=== PATIENT | female | born 1940 | race African-American/Black ===

== ENCOUNTER 2018-02-19 20:59 | Inpatient (IN) ==
[2018-02-19 21:54] LABS: Basophils % 0.4 % (0.0-0.8); Eosinophils # 0.2 10*3/uL (0.0-0.87); Eosinophils % 2.2 % (0.00-10.9); Hematocrit 27.9 VOL% (35.7-47.0); Hemoglobin 8.6 GM/DL (12.0-16.0); Immature Granulocytes % 0.4 %; Immature Granulocytes Absolute 0.03 #; Lymphocytes # 1.5 10*3/uL (1.4-4.0); Lymphocytes % 20.8 % (21.3-54.2); Mean Corpuscular HGB Conc 30.8 GM/DL (32-36); Mean Corpuscular Hemoglobin 29 PG (27-34); Mean Corpuscular Volume 92.7 FL (87-102); Mean Platelet Volume 12.2 FL (9.6-12.0); Monocytes # 0.8 10*3/uL (0.11-0.8); Monocytes % 10.7 % (1.7-12.7); Neutrophils # 4.7 10*3/uL (1.4-7.4); Neutrophils % 65.5 % (38.7-73.9); Platelet Count 108 T/CUMM (130-400); Red Blood Count 3.01 MC/CUMM (3.8-5.5); Red Cell Distribution Width 13.2 % (9.3-17.3); White Blood Count 7.2 T/CUMM (4-12)
[2018-02-19 22:04] LABS: Alanine Aminotransferase 11 U/L (13-56); Albumin 3.2 G/DL (3.4-5.0); Alkaline Phosphatase 90 U/L (45-117); Aspartate Amino Transferase 10 U/L (0-37); Bilirubin,Total < 0.39 MG/DL (0.2-1.0); Blood Urea Nitrogen 30 MG/DL (7-18); Calcium 9.8 MG/DL (8.5-10.1); Glucose 72 MG/DL (74-106); Osmolality,Calculated 283.4 MOS/KG (273-304); Potassium 3.7 MMOL/L (3.5-5.1); Sodium 140 MMOL/L (136-145); Total Protein 7.2 G/DL (6.4-8.3)
[2018-02-19 22:24] LABS: INR 1.2; PT Patient Result 12.8 SECS
[2018-02-20 01:48] LABS: Basophils # 0.1 10*3/uL (0.0-0.2); Basophils % 0.5 % (0.0-0.8); Eosinophils # 0.2 10*3/uL (0.0-0.87); Eosinophils % 1.7 % (0.00-10.9); Hematocrit 25.2 VOL% (35.7-47.0); Immature Granulocytes % 1.4 %; Immature Granulocytes Absolute 0.15 #; Lymphocytes # 1.7 10*3/uL (1.4-4.0); Lymphocytes % 15.9 % (21.3-54.2); Mean Corpuscular HGB Conc 31.7 GM/DL (32-36); Mean Corpuscular Hemoglobin 29 PG (27-34); Mean Corpuscular Volume 90.6 FL (87-102); Mean Platelet Volume 11.9 FL (9.6-12.0); Monocytes # 0.9 10*3/uL (0.11-0.8); Monocytes % 8.2 % (1.7-12.7); Neutrophils # 7.7 10*3/uL (1.4-7.4); Neutrophils % 72.3 % (38.7-73.9); Platelet Count 115 T/CUMM (130-400); Red Blood Count 2.78 MC/CUMM (3.8-5.5); Red Cell Distribution Width 13.3 % (9.3-17.3); White Blood Count 10.7 T/CUMM (4-12)
[2018-02-20 06:00] LABS: Alanine Aminotransferase < 9 U/L (13-56); Albumin 2.8 G/DL (3.4-5.0); Alkaline Phosphatase 78 U/L (45-117); Aspartate Amino Transferase 8 U/L (0-37); Blood Urea Nitrogen 28 MG/DL (7-18); Calcium 9.5 MG/DL (8.5-10.1); Cholesterol 132 MG/DL (50-200); Glucose 78 MG/DL (74-106); HDL Cholesterol 56 MG/DL (40-60); Osmolality,Calculated 287.1 MOS/KG (273-304); Potassium 3.5 MMOL/L (3.5-5.1); Risk Ratio 2.36; Sodium 142 MMOL/L (136-145); Total Protein 6.2 G/DL (6.4-8.3); Triglycerides 51 MG/DL (2-150); VLDL CHOLESTEROL 10.2 MG/DL
[2018-02-20 14:33] LABS: Hematocrit 28.8 VOL% (35.7-47.0); Hemoglobin 9.3 GM/DL (12.0-16.0)
[2018-02-20 21:30] LABS: Hematocrit 29.1 VOL% (35.7-47.0); Hemoglobin 9.7 GM/DL (12.0-16.0)
[2018-02-21 05:22] LABS: Basophils % 0.3 % (0.0-0.8); Eosinophils # 0.2 10*3/uL (0.0-0.87); Eosinophils % 1.5 % (0.00-10.9); Hematocrit 27.1 VOL% (35.7-47.0); Hemoglobin 9.1 GM/DL (12.0-16.0); Immature Granulocytes % 0.4 %; Immature Granulocytes Absolute 0.04 #; Lymphocytes # 1.2 10*3/uL (1.4-4.0); Lymphocytes % 12.4 % (21.3-54.2); Mean Corpuscular HGB Conc 33.6 GM/DL (32-36); Mean Corpuscular Hemoglobin 30 PG (27-34); Mean Platelet Volume 11.2 FL (9.6-12.0); Monocytes # 0.8 10*3/uL (0.11-0.8); Monocytes % 8.2 % (1.7-12.7); Neutrophils # 7.6 10*3/uL (1.4-7.4); Neutrophils % 77.2 % (38.7-73.9); Red Blood Count 3.08 MC/CUMM (3.8-5.5); Red Cell Distribution Width 13.8 % (9.3-17.3); White Blood Count 9.9 T/CUMM (4-12)
[2018-02-21 05:25] LABS: Platelet Count 87 T/CUMM (130-400)
[2018-02-21 05:50] LABS: Hypochromasia 1+; Microcytosis Slight
[2018-02-21 05:51] LABS: Platelet Estimate Decreased
[2018-02-22 06:05] LABS: Basophils % 0.2 % (0.0-0.8); Eosinophils # 0.2 10*3/uL (0.0-0.87); Eosinophils % 1.7 % (0.00-10.9); Hematocrit 24.1 VOL% (35.7-47.0); Immature Granulocytes % 0.5 %; Immature Granulocytes Absolute 0.04 #; Lymphocytes # 1.2 10*3/uL (1.4-4.0); Lymphocytes % 13.8 % (21.3-54.2); Mean Corpuscular HGB Conc 33.2 GM/DL (32-36); Mean Corpuscular Hemoglobin 29 PG (27-34); Mean Corpuscular Volume 88.3 FL (87-102); Mean Platelet Volume 12.3 FL (9.6-12.0); Monocytes # 0.7 10*3/uL (0.11-0.8); Monocytes % 7.9 % (1.7-12.7); Neutrophils # 6.5 10*3/uL (1.4-7.4); Neutrophils % 75.9 % (38.7-73.9); Platelet Count 88 T/CUMM (130-400); Red Blood Count 2.73 MC/CUMM (3.8-5.5); Red Cell Distribution Width 13.6 % (9.3-17.3); White Blood Count 8.6 T/CUMM (4-12)
[2018-02-22 06:39] LABS: Calcium 9.6 MG/DL (8.5-10.1); Osmolality,Calculated 288.1 MOS/KG (273-304); Potassium 3.5 MMOL/L (3.5-5.1)
[2018-02-22 06:49] LABS: Hypochromasia 1+; Microcytosis 1+
[2018-02-22 06:50] LABS: Ovalocytes Slight; Platelet Estimate Decreased
[2018-02-22 16:31] LABS: Hematocrit 23.2 VOL% (35.7-47.0); Hemoglobin 7.2 GM/DL (12.0-16.0)
[2018-02-23 06:14] LABS: Basophils % 0.2 % (0.0-0.8); Eosinophils # 2.5 10*3/uL (0.0-0.87); Eosinophils % 40.5 % (0.00-10.9); Hematocrit 30.7 VOL% (35.7-47.0); Immature Granulocytes % 1.8 %; Immature Granulocytes Absolute 0.11 #; Lymphocytes # 0.6 10*3/uL (1.4-4.0); Lymphocytes % 8.8 % (21.3-54.2); Mean Corpuscular HGB Conc 32.9 GM/DL (32-36); Mean Corpuscular Hemoglobin 30 PG (27-34); Mean Platelet Volume 12.1 FL (9.6-12.0); Monocytes # 0.4 10*3/uL (0.11-0.8); Monocytes % 6.1 % (1.7-12.7); Neutrophils # 2.7 10*3/uL (1.4-7.4); Neutrophils % 42.6 % (38.7-73.9); Platelet Count 73 T/CUMM (130-400); Red Cell Distribution Width 13.6 % (9.3-17.3); White Blood Count 6.3 T/CUMM (4-12)
[2018-02-23 06:19] LABS: Red Blood Count 3.41 MC/CUMM (3.8-5.5)
[2018-02-23 06:20] LABS: Hemoglobin 10.1 GM/DL (12.0-16.0)
[2018-02-23 06:35] LABS: Band Neutrophils 1 % (0-10); Eosinophils 5 % (0-10); Lymphocytes 5 % (20-55); Segmented Neutrophils 87 % (50-85); Total Cells Counted 100
[2018-02-23 06:38] LABS: Calcium 9.5 MG/DL (8.5-10.1); Osmolality,Calculated 286.3 MOS/KG (273-304); Potassium 3.2 MMOL/L (3.5-5.1)
[2018-02-23 06:43] LABS: Microcytosis 1+
[2018-02-23 06:44] LABS: Ovalocytes Slight; Platelet Estimate Decreased
[2018-02-24 10:53] LABS: Hematocrit 23.1 VOL% (35.7-47.0)
[2018-02-24 10:55] LABS: Hemoglobin 7.6 GM/DL (12.0-16.0)
[2018-02-25 05:38] LABS: Basophils % 0.2 % (0.0-0.8); Eosinophils # 0.1 10*3/uL (0.0-0.87); Eosinophils % 1.2 % (0.00-10.9); Hematocrit 28.2 VOL% (35.7-47.0); Hemoglobin 9.6 GM/DL (12.0-16.0); Immature Granulocytes % 0.6 %; Immature Granulocytes Absolute 0.07 #; Lymphocytes # 1.2 10*3/uL (1.4-4.0); Lymphocytes % 10.5 % (21.3-54.2); Mean Corpuscular Hemoglobin 28 PG (27-34); Mean Corpuscular Volume 83.4 FL (87-102); Mean Platelet Volume 12.5 FL (9.6-12.0); Monocytes % 8.1 % (1.7-12.7); Neutrophils # 9.4 10*3/uL (1.4-7.4); Neutrophils % 79.4 % (38.7-73.9); Red Blood Count 3.38 MC/CUMM (3.8-5.5); Red Cell Distribution Width 17.4 % (9.3-17.3); White Blood Count 11.8 T/CUMM (4-12)
[2018-02-25 05:40] LABS: Platelet Count 72 T/CUMM (130-400)
[2018-02-25 06:01] LABS: Hypochromasia 1+; Microcytosis 1+; Platelet Estimate Decreased
[2018-02-25 11:40] VITALS: BP 134/67
== END 2018-02-25 15:14 | disposition home or self-care (01) | DRG 378 ==
LOC: EDUNIT# → EDBD → N.ED 20:59 → N.EDINP 22:52 → N.2E 02-20 00:40
PROVIDERS: ADMIT Family Medicine; ATTEND Family Medicine

== ENCOUNTER 2018-02-26 14:54 | Inpatient (IN) ==
[2018-02-26 16:24] LABS: Basophils % 0.1 % (0.0-0.8); Eosinophils % 0.2 % (0.00-10.9); Immature Granulocytes % 0.7 %; Immature Granulocytes Absolute 0.08 #; Lymphocytes # 0.9 10*3/uL (1.4-4.0); Lymphocytes % 7.9 % (21.3-54.2); Mean Corpuscular HGB Conc 33.1 GM/DL (32-36); Mean Corpuscular Hemoglobin 29 PG (27-34); Mean Corpuscular Volume 87.1 FL (87-102); Mean Platelet Volume 11.8 FL (9.6-12.0); Monocytes # 0.8 10*3/uL (0.11-0.8); Monocytes % 7.5 % (1.7-12.7); Neutrophils # 9.2 10*3/uL (1.4-7.4); Neutrophils % 83.6 % (38.7-73.9); Platelet Count 75 T/CUMM (130-400); Red Blood Count 2.01 MC/CUMM (3.8-5.5); Red Cell Distribution Width 17.8 % (9.3-17.3)
[2018-02-26 16:30] LABS: Hemoglobin 5.8 GM/DL (12.0-16.0)
[2018-02-26 16:31] LABS: Hematocrit 17.5 VOL% (35.7-47.0)
[2018-02-26] MEDS ORDERED: SODIUM CHLORIDE 0.9% 1,000 ML IV PRN (16:31)
[2018-02-26] MEDS ORDERED: ONDANSETRON 4 MG/2 ML VIAL IV PRN (16:32)
[2018-02-26] MEDS ORDERED: ACETAMINOPHEN 325 MG TABLET PO PRN ×2 (16:32→17:59)
[2018-02-26 16:43] LABS: Albumin 2.4 G/DL (3.4-5.0); Bilirubin,Total 0.4 MG/DL (0.2-1.0); Calcium 8.7 MG/DL (8.5-10.1); Potassium 3.5 MMOL/L (3.5-5.1); Total Protein 5.1 G/DL (6.4-8.3)
[2018-02-26] MEDS: SODIUM CHLORIDE 0.9% 1,000 ML IV SCH (18:16)
[2018-02-26] MEDS: DOCUSATE SODIUM 100 MG CAPSULE PO SCH (21:42)
[2018-02-26] MEDS: ROSUVASTATIN 10 MG TABLET PO SCH (21:42)
[2018-02-27] MEDS: LEVOTHYROXINE 25 MCG TABLET PO SCH (05:46)
[2018-02-27 06:29] LABS: Hematocrit 25.2 VOL% (35.7-47.0); Hemoglobin 8.5 GM/DL (12.0-16.0)
[2018-02-27] MEDS: SODIUM CHLORIDE 0.9% 1,000 ML IV SCH ×2 (07:38→15:41)
[2018-02-27 09:18] LABS: Hemoglobin 8.5 GM/DL (12.0-16.0)
[2018-02-27] MEDS: DOCUSATE SODIUM 100 MG CAPSULE PO SCH ×2 (10:29→20:33)
[2018-02-27] MEDS: FUROSEMIDE 20 MG TABLET PO SCH (10:29)
[2018-02-27] MEDS: PANTOPRAZOLE 40 MG TABLET PO SCH (10:30)
[2018-02-27 12:27] LABS: Hematocrit 22.8 VOL% (35.7-47.0); Hemoglobin 7.8 GM/DL (12.0-16.0)
[2018-02-27] MEDS: ROSUVASTATIN 10 MG TABLET PO SCH (20:33)
[2018-02-28] MEDS: SODIUM CHLORIDE 0.9% 1,000 ML IV SCH (06:13)
[2018-02-28] MEDS: LEVOTHYROXINE 25 MCG TABLET PO SCH (06:13)
[2018-02-28 06:25] LABS: Basophils % 0.2 % (0.0-0.8); Eosinophils # 0.1 10*3/uL (0.0-0.87); Eosinophils % 0.9 % (0.00-10.9); Hematocrit 32.1 VOL% (35.7-47.0); Hemoglobin 11.1 GM/DL (12.0-16.0); Immature Granulocytes % 0.9 %; Immature Granulocytes Absolute 0.09 #; Lymphocytes # 1.2 10*3/uL (1.4-4.0); Lymphocytes % 12.2 % (21.3-54.2); Mean Corpuscular HGB Conc 34.6 GM/DL (32-36); Mean Corpuscular Hemoglobin 29 PG (27-34); Mean Corpuscular Volume 83.2 FL (87-102); Mean Platelet Volume 11.7 FL (9.6-12.0); Monocytes # 0.8 10*3/uL (0.11-0.8); Neutrophils # 7.5 10*3/uL (1.4-7.4); Neutrophils % 77.8 % (38.7-73.9); Platelet Count 68 T/CUMM (130-400); Red Blood Count 3.86 MC/CUMM (3.8-5.5); Red Cell Distribution Width 15.5 % (9.3-17.3); White Blood Count 9.7 T/CUMM (4-12)
[2018-02-28 07:06] LABS: Lymphocytes 17 % (20-55); Segmented Neutrophils 79 % (50-85); Total Cells Counted 100
[2018-02-28 07:07] LABS: Platelet Estimate Decreased
[2018-02-28] MEDS: DOCUSATE SODIUM 100 MG CAPSULE PO SCH (10:25)
[2018-02-28] MEDS: FUROSEMIDE 20 MG TABLET PO SCH (10:25)
[2018-02-28] MEDS: PANTOPRAZOLE 40 MG TABLET PO SCH (10:25)
[2018-02-28] MEDS: POLYETHYLENE GLYCOL POWDER 17 GM PACK PO SCH ×2 (14:22→20:56)
[2018-02-28] MEDS: ROSUVASTATIN 10 MG TABLET PO SCH (20:56)
[2018-03-01] MEDS: SODIUM CHLORIDE 0.9% 1,000 ML IV SCH (06:21)
[2018-03-01] MEDS: LEVOTHYROXINE 25 MCG TABLET PO SCH (06:22)
[2018-03-01 07:32] LABS: Basophils % 0.2 % (0.0-0.8); Eosinophils # 0.1 10*3/uL (0.0-0.87); Eosinophils % 1.3 % (0.00-10.9); Hemoglobin 7.9 GM/DL (12.0-16.0); Immature Granulocytes % 0.7 %; Immature Granulocytes Absolute 0.08 #; Lymphocytes % 9.5 % (21.3-54.2); Mean Corpuscular HGB Conc 32.9 GM/DL (32-36); Mean Corpuscular Hemoglobin 28 PG (27-34); Mean Corpuscular Volume 86.3 FL (87-102); Mean Platelet Volume 11.9 FL (9.6-12.0); Monocytes # 0.9 10*3/uL (0.11-0.8); Monocytes % 7.9 % (1.7-12.7); Neutrophils # 8.7 10*3/uL (1.4-7.4); Neutrophils % 80.4 % (38.7-73.9); Platelet Count 84 T/CUMM (130-400); Red Blood Count 2.78 MC/CUMM (3.8-5.5); Red Cell Distribution Width 15.3 % (9.3-17.3); White Blood Count 10.8 T/CUMM (4-12)
[2018-03-01 07:51] LABS: Albumin 2.1 G/DL (3.4-5.0); Bilirubin,Total 0.8 MG/DL (0.2-1.0); Calcium 8.7 MG/DL (8.5-10.1); Potassium 3.4 MMOL/L (3.5-5.1); Total Protein 4.5 G/DL (6.4-8.3)
[2018-03-01] MEDS: FUROSEMIDE 20 MG TABLET PO SCH (09:16)
[2018-03-01] MEDS: PANTOPRAZOLE 40 MG TABLET PO SCH (09:16)
[2018-03-01] MEDS: POLYETHYLENE GLYCOL POWDER 17 GM PACK PO SCH ×3 (09:17→20:27)
[2018-03-01] MEDS ORDERED: FUROSEMIDE 20 MG/2 ML VIAL IV PRN ×2 (11:07→21:00)
[2018-03-01] MEDS ORDERED: SODIUM CHLORIDE 0.9% 1,000 ML IV PRN (11:07)
[2018-03-01] MEDS: POTASSIUM CHLORIDE RIDER 10 MEQ in PREMIX 1 EACH IV SCH ×3 (14:40→18:02)
[2018-03-01 14:49] LABS: Hypochromasia 1+
[2018-03-01 14:50] LABS: Platelet Estimate Decreased
[2018-03-01] MEDS: ROSUVASTATIN 10 MG TABLET PO SCH (20:27)
[2018-03-02 05:21] LABS: Basophils % 0.3 % (0.0-0.8); Eosinophils # 0.2 10*3/uL (0.0-0.87); Eosinophils % 1.2 % (0.00-10.9); Hematocrit 33.2 VOL% (35.7-47.0); Hemoglobin 11.2 GM/DL (12.0-16.0); Immature Granulocytes % 0.6 %; Immature Granulocytes Absolute 0.07 #; Lymphocytes # 1.1 10*3/uL (1.4-4.0); Lymphocytes % 9.1 % (21.3-54.2); Mean Corpuscular HGB Conc 33.7 GM/DL (32-36); Mean Corpuscular Hemoglobin 30 PG (27-34); Mean Corpuscular Volume 88.3 FL (87-102); Mean Platelet Volume 11.9 FL (9.6-12.0); Monocytes % 8.4 % (1.7-12.7); Neutrophils # 9.8 10*3/uL (1.4-7.4); Neutrophils % 80.4 % (38.7-73.9); Platelet Count 90 T/CUMM (130-400); Red Blood Count 3.76 MC/CUMM (3.8-5.5); Red Cell Distribution Width 15.9 % (9.3-17.3); White Blood Count 12.2 T/CUMM (4-12)
[2018-03-02] MEDS: LEVOTHYROXINE 25 MCG TABLET PO SCH (05:38)
[2018-03-02 05:44] LABS: Hypochromasia 1+; Lymphocytes 7 % (20-55); Ovalocytes Slight; Platelet Estimate Decreased; Segmented Neutrophils 85 % (50-85); Total Cells Counted 100
[2018-03-02 05:46] LABS: Albumin 2.3 G/DL (3.4-5.0); Bilirubin,Total 1.2 MG/DL (0.2-1.0); Calcium 8.7 MG/DL (8.5-10.1); Potassium 3.6 MMOL/L (3.5-5.1)
[2018-03-02 06:01] LABS: Free T4 (Free Thyroxine) 1.09 NG/DL (0.76-1.46)
[2018-03-02 06:07] LABS: Thyroid Stimulating Hormone 3.35 uIU/ml (0.358-3.74)
[2018-03-02] MEDS: PANTOPRAZOLE 40 MG TABLET PO SCH (09:30)
[2018-03-02] MEDS: FUROSEMIDE 20 MG TABLET PO SCH (09:30)
[2018-03-02] MEDS: POLYETHYLENE GLYCOL POWDER 17 GM PACK PO SCH ×3 (09:31→20:59)
[2018-03-02] MEDS ORDERED: MAGNESIUM SULF RIDER 2 GM in PREMIX 1 EACH IV ONE (13:22)
[2018-03-02] MEDS: ROSUVASTATIN 10 MG TABLET PO SCH (20:58)
[2018-03-02] MEDS: SODIUM CHLORIDE 0.9% 1,000 ML IV SCH (23:05)
[2018-03-03 04:14] LABS: Basophils % 0.3 % (0.0-0.8); Eosinophils # 0.2 10*3/uL (0.0-0.87); Eosinophils % 1.9 % (0.00-10.9); Hematocrit 30.9 VOL% (35.7-47.0); Hemoglobin 10.5 GM/DL (12.0-16.0); Immature Granulocytes % 0.9 %; Immature Granulocytes Absolute 0.09 #; Lymphocytes # 1.2 10*3/uL (1.4-4.0); Lymphocytes % 11.4 % (21.3-54.2); Mean Corpuscular Hemoglobin 30 PG (27-34); Mean Corpuscular Volume 87.8 FL (87-102); Mean Platelet Volume 11.7 FL (9.6-12.0); Monocytes % 9.5 % (1.7-12.7); Neutrophils # 7.9 10*3/uL (1.4-7.4); Platelet Count 105 T/CUMM (130-400); Red Blood Count 3.52 MC/CUMM (3.8-5.5); Red Cell Distribution Width 15.9 % (9.3-17.3); White Blood Count 10.4 T/CUMM (4-12)
[2018-03-03 04:38] LABS: Calcium 8.9 MG/DL (8.5-10.1); Potassium 3.3 MMOL/L (3.5-5.1)
[2018-03-03] MEDS: LEVOTHYROXINE 25 MCG TABLET PO SCH (06:08)
[2018-03-03] MEDS: PANTOPRAZOLE 40 MG TABLET PO SCH (11:03)
[2018-03-03] MEDS: FUROSEMIDE 20 MG TABLET PO SCH (11:03)
[2018-03-03] MEDS: POLYETHYLENE GLYCOL POWDER 17 GM PACK PO SCH ×3 (11:03→21:07)
[2018-03-03] MEDS ORDERED: ZINC OXIDE PASTE 113 GM TUBE TOP PRN (20:23)
[2018-03-03] MEDS: ROSUVASTATIN 10 MG TABLET PO SCH (21:07)
[2018-03-03] MEDS ORDERED: POTASSIUM CHLORIDE 20 MEQ TABLET PO ONE (22:11)
[2018-03-04 05:00] LABS: Basophils % 0.3 % (0.0-0.8); Eosinophils # 0.2 10*3/uL (0.0-0.87); Eosinophils % 2.2 % (0.00-10.9); Hematocrit 31.6 VOL% (35.7-47.0); Hemoglobin 10.6 GM/DL (12.0-16.0); Immature Granulocytes % 0.7 %; Immature Granulocytes Absolute 0.07 #; Lymphocytes # 1.3 10*3/uL (1.4-4.0); Lymphocytes % 12.5 % (21.3-54.2); Mean Corpuscular HGB Conc 33.5 GM/DL (32-36); Mean Corpuscular Hemoglobin 30 PG (27-34); Mean Corpuscular Volume 89.3 FL (87-102); Mean Platelet Volume 11.4 FL (9.6-12.0); Monocytes % 9.6 % (1.7-12.7); Neutrophils # 7.6 10*3/uL (1.4-7.4); Neutrophils % 74.7 % (38.7-73.9); Platelet Count 108 T/CUMM (130-400); Red Blood Count 3.54 MC/CUMM (3.8-5.5); Red Cell Distribution Width 16.1 % (9.3-17.3); White Blood Count 10.2 T/CUMM (4-12)
[2018-03-04 05:30] LABS: Albumin 2.2 G/DL (3.4-5.0); Bilirubin,Total 0.9 MG/DL (0.2-1.0); Potassium 3.8 MMOL/L (3.5-5.1); Total Protein 4.9 G/DL (6.4-8.3)
[2018-03-04] MEDS: LEVOTHYROXINE 25 MCG TABLET PO SCH (05:34)
[2018-03-04] MEDS: SODIUM CHLORIDE 0.9% 1,000 ML IV SCH ×2 (06:47→10:07)
[2018-03-04] MEDS ORDERED: POTASSIUM CHLORIDE 20 MEQ TABLET PO SCH (09:00)
[2018-03-04] MEDS: POLYETHYLENE GLYCOL POWDER 17 GM PACK PO SCH ×2 (10:07→17:11)
[2018-03-04] MEDS: PANTOPRAZOLE 40 MG TABLET PO SCH (10:07)
[2018-03-04] MEDS: FUROSEMIDE 20 MG TABLET PO SCH (10:07)
[2018-03-04 16:41] VITALS: BP 139/68
== END 2018-03-04 17:00 | disposition home health service (06) | DRG 378 ==
LOC: N.ED 14:54 → N.EDINP 16:31 → N.2E 17:12
PROVIDERS: ADMIT Family Medicine; ATTEND Family Medicine

== ENCOUNTER 2018-09-13 07:05 | Inpatient (IN) ==
[2018-09-13] MEDS ORDERED: SODIUM CHLORIDE 0.9% 500 ML IV STA (07:34)
[2018-09-13] MEDS ORDERED: PANTOPRAZOLE 40 MG VIAL IV STA (07:34)
[2018-09-13] MEDS ORDERED: ONDANSETRON 4 MG/2 ML VIAL IV STA (07:34)
[2018-09-13 07:38] LABS: Basophils % 0.3 % (0.0-0.8); Eosinophils # 0.1 10*3/uL (0.0-0.87); Hematocrit 22.6 VOL% (35.7-47.0); Hemoglobin 6.8 GM/DL (12.0-16.0); Immature Granulocytes % 0.6 %; Immature Granulocytes Absolute 0.07 #; Lymphocytes # 1.1 10*3/uL (1.4-4.0); Lymphocytes % 8.6 % (21.3-54.2); Mean Corpuscular HGB Conc 30.1 GM/DL (32-36); Mean Corpuscular Hemoglobin 29 PG (27-34); Mean Corpuscular Volume 97.4 FL (87-102); Mean Platelet Volume 11.7 FL (9.6-12.0); Monocytes # 0.9 10*3/uL (0.11-0.8); Monocytes % 7.1 % (1.7-12.7); Neutrophils % 82.4 % (38.7-73.9); Platelet Count 131 T/CUMM (130-400); Red Blood Count 2.32 MC/CUMM (3.8-5.5); Red Cell Distribution Width 13.9 % (9.3-17.3); White Blood Count 12.2 T/CUMM (4-12)
[2018-09-13 08:02] LABS: Alanine Aminotransferase 14 U/L (13-56); Albumin 2.4 G/DL (3.4-5.0); Alkaline Phosphatase 69 U/L (45-117); Aspartate Amino Transferase 12 U/L (0-37); Bilirubin,Total < 0.39 MG/DL (0.2-1.0); Blood Urea Nitrogen 33 MG/DL (7-18); Calcium 9.1 MG/DL (8.5-10.1); Glucose 106 MG/DL (74-106); Osmolality,Calculated 285.4 MOS/KG (273-304); Potassium 4.6 MMOL/L (3.5-5.1); Sodium 140 MMOL/L (136-145); Total Protein 5.9 G/DL (6.4-8.3)
[2018-09-13 08:19] LABS: INR 1.2; PT Patient Result 13.2 SECS
[2018-09-13] MEDS ORDERED: SODIUM CHLORIDE 0.9% 1,000 ML IV PRN (08:33)
[2018-09-13] MEDS ORDERED: ONDANSETRON 4 MG/2 ML VIAL IV PRN (09:52)
[2018-09-13] MEDS ORDERED: ACETAMINOPHEN 325 MG TABLET PO PRN (09:52)
[2018-09-13] MEDS: DOCUSATE SODIUM 100 MG CAPSULE PO SCH (20:56)
[2018-09-13] MEDS: METOPROLOL TARTRATE 25 MG TABLET PO SCH (20:56)
[2018-09-14 05:31] LABS: Basophils % 0.4 % (0.0-0.8); Eosinophils # 0.1 10*3/uL (0.0-0.87); Eosinophils % 1.6 % (0.00-10.9); Hematocrit 23.6 VOL% (35.7-47.0); Hemoglobin 7.4 GM/DL (12.0-16.0); Immature Granulocytes % 0.4 %; Immature Granulocytes Absolute 0.03 #; Lymphocytes # 1.1 10*3/uL (1.4-4.0); Mean Corpuscular HGB Conc 31.4 GM/DL (32-36); Mean Corpuscular Hemoglobin 29 PG (27-34); Mean Corpuscular Volume 92.5 FL (87-102); Mean Platelet Volume 11.9 FL (9.6-12.0); Monocytes # 0.7 10*3/uL (0.11-0.8); Monocytes % 8.1 % (1.7-12.7); Neutrophils # 6.4 10*3/uL (1.4-7.4); Neutrophils % 76.5 % (38.7-73.9); Platelet Count 71 T/CUMM (130-400); Red Blood Count 2.55 MC/CUMM (3.8-5.5); Red Cell Distribution Width 14.9 % (9.3-17.3); White Blood Count 8.3 T/CUMM (4-12)
[2018-09-14 06:01] LABS: Eosinophils 2 % (0-10); Hypochromasia 1+; Lymphocytes 16 % (20-55); Segmented Neutrophils 77 % (50-85); Total Cells Counted 100
[2018-09-14 06:02] LABS: Microcytosis Slight
[2018-09-14] MEDS ORDERED: PANTOPRAZOLE 40 MG TABLET PO SCH (09:00)
[2018-09-14] MEDS: FERROUS SULFATE 325 MG TABLET PO SCH (09:05)
[2018-09-14] MEDS: DOCUSATE SODIUM 100 MG CAPSULE PO SCH (09:05)
[2018-09-14] MEDS: METOPROLOL TARTRATE 25 MG TABLET PO SCH (09:05)
[2018-09-14] MEDS ORDERED: SODIUM CHLORIDE 0.9% 1,000 ML IV PRN ×2 (10:06→23:51)
[2018-09-14 19:44] LABS: Basophils % 0.3 % (0.0-0.8); Eosinophils # 0.1 10*3/uL (0.0-0.87); Hemoglobin 10.1 GM/DL (12.0-16.0); Immature Granulocytes % 0.7 %; Immature Granulocytes Absolute 0.08 #; Lymphocytes # 1.2 10*3/uL (1.4-4.0); Mean Corpuscular HGB Conc 31.6 GM/DL (32-36); Mean Corpuscular Hemoglobin 30 PG (27-34); Mean Corpuscular Volume 93.8 FL (87-102); Mean Platelet Volume 11.5 FL (9.6-12.0); Monocytes # 0.8 10*3/uL (0.11-0.8); Monocytes % 7.3 % (1.7-12.7); Neutrophils # 9.3 10*3/uL (1.4-7.4); Neutrophils % 80.7 % (38.7-73.9); Platelet Count 79 T/CUMM (130-400); Red Blood Count 3.41 MC/CUMM (3.8-5.5); Red Cell Distribution Width 14.7 % (9.3-17.3); White Blood Count 11.6 T/CUMM (4-12)
[2018-09-14 20:18] LABS: Macrocytosis Slight; Platelet Estimate Decreased
[2018-09-15] MEDS: DOCUSATE SODIUM 100 MG CAPSULE PO SCH ×3 (00:04→20:08)
[2018-09-15] MEDS: METOPROLOL TARTRATE 25 MG TABLET PO SCH ×3 (00:04→20:08)
[2018-09-15 01:11] LABS: Basophils % 0.1 % (0.0-0.8); Eosinophils # 0.1 10*3/uL (0.0-0.87); Eosinophils % 0.7 % (0.00-10.9); Hematocrit 19.4 VOL% (35.7-47.0); Immature Granulocytes % 0.9 %; Immature Granulocytes Absolute 0.14 #; Lymphocytes # 1.7 10*3/uL (1.4-4.0); Lymphocytes % 10.8 % (21.3-54.2); Mean Corpuscular HGB Conc 31.4 GM/DL (32-36); Mean Corpuscular Hemoglobin 30 PG (27-34); Mean Corpuscular Volume 93.7 FL (87-102); Mean Platelet Volume 12.4 FL (9.6-12.0); Monocytes % 6.8 % (1.7-12.7); Neutrophils # 12.4 10*3/uL (1.4-7.4); Neutrophils % 80.7 % (38.7-73.9); Platelet Count 78 T/CUMM (130-400); Red Blood Count 2.07 MC/CUMM (3.8-5.5); Red Cell Distribution Width 15.1 % (9.3-17.3); White Blood Count 15.3 T/CUMM (4-12)
[2018-09-15 01:16] LABS: Hemoglobin 6.1 GM/DL (12.0-16.0)
[2018-09-15 02:00] LABS: Anisocytosis Slight; Microcytosis Slight
[2018-09-15 02:01] LABS: Burr Cells Slight; Platelet Estimate Decreased
[2018-09-15] MEDS ORDERED: SODIUM CHLORIDE 0.9% 1,000 ML IV PRN (06:48)
[2018-09-15] MEDS ORDERED: SODIUM CHLORIDE 0.9% 500 ML IV ONE (07:16)
[2018-09-15] MEDS: FERROUS SULFATE 325 MG TABLET PO SCH (10:16)
[2018-09-15] MEDS: PANTOPRAZOLE 40 MG VIAL IV SCH ×2 (10:19→20:56)
[2018-09-15 13:16] LABS: Hematocrit 29.5 VOL% (35.7-47.0); Hemoglobin 9.2 GM/DL (12.0-16.0)
[2018-09-16 06:41] LABS: Basophils % 0.2 % (0.0-0.8); Eosinophils # 0.1 10*3/uL (0.0-0.87); Eosinophils % 0.5 % (0.00-10.9); Hematocrit 22.9 VOL% (35.7-47.0); Hemoglobin 7.4 GM/DL (12.0-16.0); Immature Granulocytes Absolute 0.15 #; Lymphocytes # 1.1 10*3/uL (1.4-4.0); Lymphocytes % 7.7 % (21.3-54.2); Mean Corpuscular HGB Conc 32.3 GM/DL (32-36); Mean Corpuscular Hemoglobin 30 PG (27-34); Mean Corpuscular Volume 93.5 FL (87-102); Mean Platelet Volume 12.5 FL (9.6-12.0); Monocytes % 7.1 % (1.7-12.7); Neutrophils # 12.2 10*3/uL (1.4-7.4); Neutrophils % 83.5 % (38.7-73.9); Platelet Count 63 T/CUMM (130-400); Red Blood Count 2.45 MC/CUMM (3.8-5.5); White Blood Count 14.6 T/CUMM (4-12)
[2018-09-16 07:01] LABS: Hypochromasia 1+; Platelet Estimate Decreased
[2018-09-16 07:02] LABS: Microcytosis Slight
[2018-09-16] MEDS: PANTOPRAZOLE 40 MG VIAL IV SCH ×2 (08:40→20:24)
[2018-09-16] MEDS: DOCUSATE SODIUM 100 MG CAPSULE PO SCH ×2 (08:40→20:24)
[2018-09-16] MEDS: FERROUS SULFATE 325 MG TABLET PO SCH (08:40)
[2018-09-16] MEDS: METOPROLOL TARTRATE 25 MG TABLET PO SCH ×2 (08:40→20:24)
[2018-09-17] MEDS: CEFTAROLINE 300 MG in SODIUM CHLORIDE 0.9% 100 ML IV SCH ×2 (08:37→23:41)
[2018-09-17] MEDS: FERROUS SULFATE 325 MG TABLET PO SCH (08:37)
[2018-09-17] MEDS: METOPROLOL TARTRATE 25 MG TABLET PO SCH ×2 (08:37→23:27)
[2018-09-17] MEDS: PANTOPRAZOLE 40 MG VIAL IV SCH ×2 (08:37→23:24)
[2018-09-17] MEDS: DOCUSATE SODIUM 100 MG CAPSULE PO SCH ×2 (08:37→23:27)
[2018-09-17 10:25] LABS: Hematocrit 20.9 VOL% (35.7-47.0); Hemoglobin 6.5 GM/DL (12.0-16.0)
[2018-09-17] MEDS ORDERED: SODIUM CHLORIDE 0.9% 1,000 ML IV PRN (12:45)
[2018-09-17] MEDS: CHLORHEXIDINE 4% SOLN 118 ML BOTTLE TOP SCH (14:11)
[2018-09-18] MEDS ORDERED: SODIUM CHLORIDE 0.9% 1,000 ML IV PRN (05:17)
[2018-09-18 05:47] LABS: Hematocrit 27.2 VOL% (35.7-47.0); Hemoglobin 8.6 GM/DL (12.0-16.0)
[2018-09-18] MEDS: FERROUS SULFATE 325 MG TABLET PO SCH (10:03)
[2018-09-18] MEDS: DOCUSATE SODIUM 100 MG CAPSULE PO SCH ×2 (10:03→20:20)
[2018-09-18] MEDS: METOPROLOL TARTRATE 25 MG TABLET PO SCH ×2 (10:03→20:20)
[2018-09-18] MEDS: PANTOPRAZOLE 40 MG VIAL IV SCH ×2 (10:03→20:20)
[2018-09-18] MEDS: CEFTAROLINE 300 MG in SODIUM CHLORIDE 0.9% 100 ML IV SCH ×2 (12:22→20:20)
[2018-09-18] MEDS: CHLORHEXIDINE 4% SOLN 118 ML BOTTLE TOP SCH (16:12)
[2018-09-19] MEDS: FERROUS SULFATE 325 MG TABLET PO SCH (09:05)
[2018-09-19] MEDS: DOCUSATE SODIUM 100 MG CAPSULE PO SCH ×2 (09:05→20:59)
[2018-09-19] MEDS: METOPROLOL TARTRATE 25 MG TABLET PO SCH ×2 (09:06→20:59)
[2018-09-19] MEDS: CHLORHEXIDINE 4% SOLN 118 ML BOTTLE TOP SCH (09:06)
[2018-09-19] MEDS: PANTOPRAZOLE 40 MG VIAL IV SCH ×2 (09:49→20:59)
[2018-09-19] MEDS: CEFTAROLINE 300 MG in SODIUM CHLORIDE 0.9% 100 ML IV SCH ×2 (09:49→20:58)
[2018-09-20] MEDS: FERROUS SULFATE 325 MG TABLET PO SCH (09:32)
[2018-09-20] MEDS: DOCUSATE SODIUM 100 MG CAPSULE PO SCH ×2 (09:32→20:24)
[2018-09-20] MEDS: METOPROLOL TARTRATE 25 MG TABLET PO SCH ×2 (09:32→20:24)
[2018-09-20] MEDS: PANTOPRAZOLE 40 MG VIAL IV SCH ×2 (09:33→20:26)
[2018-09-20] MEDS: CEFTAROLINE 300 MG in SODIUM CHLORIDE 0.9% 100 ML IV SCH ×2 (09:40→20:30)
[2018-09-20] MEDS: CHLORHEXIDINE 4% SOLN 118 ML BOTTLE TOP SCH (09:44)
[2018-09-20 13:02] LABS: Basophils % 0.3 % (0.0-0.8); Eosinophils # 0.1 10*3/uL (0.0-0.87); Hematocrit 30.1 VOL% (35.7-47.0); Hemoglobin 9.6 GM/DL (12.0-16.0); Immature Granulocytes % 0.6 %; Immature Granulocytes Absolute 0.08 #; Lymphocytes # 0.6 10*3/uL (1.4-4.0); Lymphocytes % 4.1 % (21.3-54.2); Mean Corpuscular HGB Conc 31.9 GM/DL (32-36); Mean Corpuscular Hemoglobin 29 PG (27-34); Mean Corpuscular Volume 92.3 FL (87-102); Mean Platelet Volume 10.9 FL (9.6-12.0); Monocytes % 6.8 % (1.7-12.7); Neutrophils # 12.1 10*3/uL (1.4-7.4); Neutrophils % 87.2 % (38.7-73.9); Platelet Count 117 T/CUMM (130-400); Red Blood Count 3.26 MC/CUMM (3.8-5.5); Red Cell Distribution Width 15.4 % (9.3-17.3); White Blood Count 13.9 T/CUMM (4-12)
[2018-09-20 13:28] LABS: Calcium 8.8 MG/DL (8.5-10.1); Osmolality,Calculated 275.8 MOS/KG (273-304); Potassium 3.8 MMOL/L (3.5-5.1)
[2018-09-20 13:32] LABS: Burr Cells Few; Eosinophils 1 % (0-10); Lymphocytes 4 % (20-55); Segmented Neutrophils 90 % (50-85); Total Cells Counted 100
[2018-09-20 13:33] LABS: Elliptocytes Few; Platelet Estimate Adequate
[2018-09-21 06:57] LABS: Basophils % 0.3 % (0.0-0.8); Eosinophils # 0.2 10*3/uL (0.0-0.87); Eosinophils % 1.5 % (0.00-10.9); Hematocrit 25.2 VOL% (35.7-47.0); Immature Granulocytes % 0.9 %; Immature Granulocytes Absolute 0.14 #; Lymphocytes # 1.2 10*3/uL (1.4-4.0); Lymphocytes % 7.7 % (21.3-54.2); Mean Corpuscular HGB Conc 31.7 GM/DL (32-36); Mean Corpuscular Hemoglobin 30 PG (27-34); Mean Platelet Volume 10.9 FL (9.6-12.0); Monocytes # 1.2 10*3/uL (0.11-0.8); Monocytes % 7.9 % (1.7-12.7); Neutrophils # 12.4 10*3/uL (1.4-7.4); Neutrophils % 81.7 % (38.7-73.9); Platelet Count 133 T/CUMM (130-400); Red Blood Count 2.71 MC/CUMM (3.8-5.5); Red Cell Distribution Width 15.7 % (9.3-17.3); White Blood Count 15.1 T/CUMM (4-12)
[2018-09-21] MEDS: DOCUSATE SODIUM 100 MG CAPSULE PO SCH ×2 (10:03→20:27)
[2018-09-21] MEDS: PANTOPRAZOLE 40 MG VIAL IV SCH ×2 (10:03→20:31)
[2018-09-21] MEDS: METOPROLOL TARTRATE 25 MG TABLET PO SCH ×2 (10:03→20:27)
[2018-09-21] MEDS: CEFTAROLINE 300 MG in SODIUM CHLORIDE 0.9% 100 ML IV SCH ×2 (10:03→20:27)
[2018-09-21] MEDS: CHLORHEXIDINE 4% SOLN 118 ML BOTTLE TOP SCH (10:06)
[2018-09-21] MEDS: FERROUS SULFATE 325 MG TABLET PO SCH (10:06)
[2018-09-22 05:14] LABS: Basophils % 0.2 % (0.0-0.8); Eosinophils # 0.1 10*3/uL (0.0-0.87); Immature Granulocytes % 1.2 %; Immature Granulocytes Absolute 0.15 #; Lymphocytes # 1.3 10*3/uL (1.4-4.0); Lymphocytes % 10.5 % (21.3-54.2); Mean Corpuscular HGB Conc 29.9 GM/DL (32-36); Mean Corpuscular Hemoglobin 29 PG (27-34); Mean Corpuscular Volume 96.7 FL (87-102); Mean Platelet Volume 11.2 FL (9.6-12.0); Monocytes % 7.5 % (1.7-12.7); Neutrophils # 10.2 10*3/uL (1.4-7.4); Neutrophils % 79.6 % (38.7-73.9); Platelet Count 117 T/CUMM (130-400); Red Cell Distribution Width 15.4 % (9.3-17.3); White Blood Count 12.7 T/CUMM (4-12)
[2018-09-22 05:17] LABS: Hemoglobin 5.2 GM/DL (12.0-16.0)
[2018-09-22 05:18] LABS: Hematocrit 17.4 VOL% (35.7-47.0)
[2018-09-22] MEDS ORDERED: SODIUM CHLORIDE 0.9% 1,000 ML IV PRN ×2 (05:35→07:32)
[2018-09-22] MEDS ORDERED: SODIUM CHLORIDE 0.9% 500 ML IV ONE (06:30)
[2018-09-22] MEDS: PANTOPRAZOLE 40 MG VIAL IV SCH ×2 (09:14→21:39)
[2018-09-22] MEDS: FERROUS SULFATE 325 MG TABLET PO SCH (09:14)
[2018-09-22] MEDS: DOCUSATE SODIUM 100 MG CAPSULE PO SCH ×2 (09:15→21:03)
[2018-09-22] MEDS: METOPROLOL TARTRATE 25 MG TABLET PO SCH ×2 (09:15→21:03)
[2018-09-22] MEDS: CHLORHEXIDINE 4% SOLN 118 ML BOTTLE TOP SCH (09:27)
[2018-09-22] MEDS: CEFTAROLINE 300 MG in SODIUM CHLORIDE 0.9% 100 ML IV SCH (13:10)
[2018-09-22 15:22] LABS: Hematocrit 25.8 VOL% (35.7-47.0)
[2018-09-22 15:23] LABS: Hemoglobin 8.2 GM/DL (12.0-16.0)
[2018-09-23] MEDS: CEFTAROLINE 300 MG in SODIUM CHLORIDE 0.9% 100 ML IV SCH ×2 (02:30→17:18)
[2018-09-23 05:30] LABS: Basophils % 0.3 % (0.0-0.8); Eosinophils # 0.1 10*3/uL (0.0-0.87); Eosinophils % 1.1 % (0.00-10.9); Hematocrit 19.2 VOL% (35.7-47.0); Immature Granulocytes % 0.9 %; Immature Granulocytes Absolute 0.11 #; Lymphocytes # 1.3 10*3/uL (1.4-4.0); Lymphocytes % 11.1 % (21.3-54.2); Mean Corpuscular HGB Conc 31.8 GM/DL (32-36); Mean Corpuscular Hemoglobin 29 PG (27-34); Mean Corpuscular Volume 92.3 FL (87-102); Mean Platelet Volume 11.5 FL (9.6-12.0); Monocytes % 8.7 % (1.7-12.7); Neutrophils % 77.9 % (38.7-73.9); Red Blood Count 2.08 MC/CUMM (3.8-5.5); Red Cell Distribution Width 15.4 % (9.3-17.3); White Blood Count 11.6 T/CUMM (4-12)
[2018-09-23 05:35] LABS: Hemoglobin 6.1 GM/DL (12.0-16.0)
[2018-09-23 05:36] LABS: Platelet Count 84 T/CUMM (130-400)
[2018-09-23 05:57] LABS: Platelet Estimate Decreased; Polychromasia Few
[2018-09-23] MEDS ORDERED: SODIUM CHLORIDE 0.9% 1,000 ML IV PRN ×2 (07:11→07:14)
[2018-09-23 07:49] LABS: INR 1.4; PT Patient Result 15.4 SECS; Partial Thromboplastin Time 29.9 SECS (0-40)
[2018-09-23] MEDS: CHLORHEXIDINE 4% SOLN 118 ML BOTTLE TOP SCH (08:02)
[2018-09-23] MEDS: METOPROLOL TARTRATE 25 MG TABLET PO SCH ×2 (10:53→23:06)
[2018-09-23] MEDS: FERROUS SULFATE 325 MG TABLET PO SCH (11:01)
[2018-09-23] MEDS: DOCUSATE SODIUM 100 MG CAPSULE PO SCH ×2 (11:01→20:14)
[2018-09-23] MEDS: PANTOPRAZOLE 40 MG VIAL IV SCH ×2 (11:04→20:14)
[2018-09-23] MEDS ORDERED: BISACODYL 5 MG TABLET PO ONE (15:00)
[2018-09-23] MEDS ORDERED: POLYETHYLENE GLYCOL POWDER 255 GM BOTTLE PO ONE (15:00)
[2018-09-23 18:23] LABS: Hemoglobin 7.4 GM/DL (12.0-16.0)
[2018-09-24 01:16] LABS: Hematocrit 18.6 VOL% (35.7-47.0); Hemoglobin 6.1 GM/DL (12.0-16.0)
[2018-09-24] MEDS: CEFTAROLINE 300 MG in SODIUM CHLORIDE 0.9% 100 ML IV SCH ×2 (03:15→14:33)
[2018-09-24] MEDS ORDERED: POLYETHYLENE GLYCOL POWDER 255 GM BOTTLE PO ONE (06:00)
[2018-09-24] MEDS ORDERED: SODIUM CHLORIDE 0.9% 1,000 ML IV PRN ×3 (06:54→16:21)
[2018-09-24] MEDS ORDERED: LACTATED RINGERS 500 ML IV ONE (07:00)
[2018-09-24 07:49] LABS: Hematocrit 27.3 VOL% (35.7-47.0); Hemoglobin 9.1 GM/DL (12.0-16.0)
[2018-09-24 07:58] LABS: INR 1.3; PT Patient Result 14.1 SECS
[2018-09-24] MEDS: CHLORHEXIDINE 4% SOLN 118 ML BOTTLE TOP SCH (08:00)
[2018-09-24] MEDS ORDERED: PHENYLEPHRINE 1 MG/10 ML SYRINGE IV ONE (09:00)
[2018-09-24] MEDS ORDERED: ESMOLOL 100 MG/10 ML VIAL IV ONE (09:00)
[2018-09-24] MEDS ORDERED: PROPOFOL 200 MG/20 ML VIAL IV ONE (09:00)
[2018-09-24] MEDS ORDERED: LIDOCAINE 2% 5 ML VIAL ONE (09:00)
[2018-09-24 09:11] LABS: Hematocrit 25.4 VOL% (35.7-47.0); Hemoglobin 8.4 GM/DL (12.0-16.0)
[2018-09-24] MEDS: METOPROLOL TARTRATE 25 MG TABLET PO SCH ×2 (10:17→20:40)
[2018-09-24] MEDS: DOCUSATE SODIUM 100 MG CAPSULE PO SCH ×2 (10:18→20:40)
[2018-09-24] MEDS: PANTOPRAZOLE 40 MG VIAL IV SCH ×2 (14:32→20:33)
[2018-09-24] MEDS: FERROUS SULFATE 325 MG TABLET PO SCH (14:36)
[2018-09-24 15:12] LABS: Hematocrit 36.5 VOL% (35.7-47.0)
[2018-09-24 17:42] LABS: Hematocrit 31.9 VOL% (35.7-47.0); Hemoglobin 10.4 GM/DL (12.0-16.0)
[2018-09-24 21:47] LABS: Hematocrit 23.3 VOL% (35.7-47.0)
[2018-09-25] MEDS: CEFTAROLINE 300 MG in SODIUM CHLORIDE 0.9% 100 ML IV SCH (02:36)
[2018-09-25 04:16] LABS: Hemoglobin 6.7 GM/DL (12.0-16.0)
[2018-09-25] MEDS ORDERED: SODIUM CHLORIDE 0.9% 1,000 ML IV PRN ×4 (05:45→20:42)
[2018-09-25 06:23] LABS: INR 1.5; PT Patient Result 16.1 SECS
[2018-09-25 06:26] LABS: Basophils % 0.1 % (0.0-0.8); Eosinophils # 0.1 10*3/uL (0.0-0.87); Eosinophils % 0.5 % (0.00-10.9); Hematocrit 19.4 VOL% (35.7-47.0); Hemoglobin 6.5 GM/DL (12.0-16.0); Immature Granulocytes % 1.2 %; Immature Granulocytes Absolute 0.18 #; Lymphocytes % 6.5 % (21.3-54.2); Mean Corpuscular HGB Conc 33.5 GM/DL (32-36); Mean Corpuscular Hemoglobin 29 PG (27-34); Mean Corpuscular Volume 87.8 FL (87-102); Mean Platelet Volume 12.9 FL (9.6-12.0); Monocytes # 0.8 10*3/uL (0.11-0.8); Monocytes % 5.5 % (1.7-12.7); Neutrophils # 12.7 10*3/uL (1.4-7.4); Neutrophils % 86.2 % (38.7-73.9); Red Blood Count 2.21 MC/CUMM (3.8-5.5); Red Cell Distribution Width 14.7 % (9.3-17.3); White Blood Count 14.7 T/CUMM (4-12)
[2018-09-25] MEDS ORDERED: VANCOMYCIN INJ 750 MG in SODIUM CHLORIDE 0.9% 250 ML IV ONE (06:30)
[2018-09-25 06:31] LABS: Platelet Count 55 T/CUMM (130-400)
[2018-09-25 06:54] LABS: Albumin 1.5 G/DL (3.4-5.0); Bilirubin,Total 0.9 MG/DL (0.2-1.0); Osmolality,Calculated 289.1 MOS/KG (273-304); Potassium 3.5 MMOL/L (3.5-5.1); Total Protein 3.1 G/DL (6.4-8.3)
[2018-09-25 07:52] LABS: Hypochromasia 1+; Microcytosis Slight; Polychromasia Few
[2018-09-25 07:53] LABS: Platelet Estimate Decreased
[2018-09-25] MEDS ORDERED: CALCIUM CHLORIDE 1,000 MG/10 ML VIAL IV ONE (09:21)
[2018-09-25] MEDS ORDERED: SODIUM BICARBONATE 50 MEQ/50 ML VIAL IV ONE ×2 (09:21→13:11)
[2018-09-25] MEDS ORDERED: PHENYLEPHRINE DRIP 20 MG/250 ML PREMIX IV ONE (09:21)
[2018-09-25] MEDS ORDERED: HEPARIN/NACL 0.9% 2 UNITS/ML 500 ML IV ONE (09:21)
[2018-09-25] MEDS ORDERED: LACTATED RINGERS 1,000 ML IV SCH (09:30)
[2018-09-25 11:05] LABS: ABG Base Excess -8.1 MMOL/L (-2.5-2.5); ABG HCO3 15.3 MMOL/L (20-26); ABG Oxygen Saturation 98.9 % (95-100); ABG PCO2 24.7 MM HG (35-48); ABG PO2 494.3 MM HG (80-95); ABG TCO2 16.1 MMOL/L (23-27); Glucose Heart Surgery 112 MG/DL (74-106); Hemoglobin Heart Surgery 9.1 G/DL (12.0-16.0); Ionized Calcium Arterial 1.09 MMOL/L (1.21-1.46); PCO2 Patient Temp Arterial 24.7 MMHG; PO2 Patient Temp Arterial 494.3 MM HG; Patient Temperature 37 CELCIUS; Potassium Heart/CVR 3.3 MMOL/L (3.5-5.1); Sodium Heart/CVR 135 MMOL/L (135-145)
[2018-09-25 11:21] LABS: INR 1.2; PT Patient Result 13.4 SECS; Partial Thromboplastin Time 28.3 SECS (0-40)
[2018-09-25] MEDS: METOPROLOL TARTRATE 25 MG TABLET PO SCH (11:26)
[2018-09-25] MEDS: FERROUS SULFATE 325 MG TABLET PO SCH (11:26)
[2018-09-25] MEDS: PANTOPRAZOLE 40 MG VIAL IV SCH ×2 (11:26→21:12)
[2018-09-25] MEDS: DOCUSATE SODIUM 100 MG CAPSULE PO SCH (11:26)
[2018-09-25] MEDS: CHLORHEXIDINE 4% SOLN 118 ML BOTTLE TOP SCH (11:27)
[2018-09-25] MEDS ORDERED: MICROFIBRILLAR COLLAGEN POWDER 1 GM CAN TOP ONE (12:14)
[2018-09-25 12:24] LABS: ABG Base Excess -4.3 MMOL/L (-2.5-2.5); ABG HCO3 20.9 MMOL/L (20-26); ABG PCO2 30.9 MM HG (35-48); ABG PH 7.409 (7.35-7.45); ABG TCO2 17.7 MMOL/L (23-27)
[2018-09-25] MEDS ORDERED: PROPOFOL 1,000 MG/100 ML BOTTLE IV ONE (12:45)
[2018-09-25 13:01] LABS: ABG Base Excess -4.3 MMOL/L (-2.5-2.5); ABG HCO3 20.9 MMOL/L (20-26); ABG PCO2 30.9 MM HG (35-48); ABG PH 7.409 (7.35-7.45); ABG TCO2 17.7 MMOL/L (23-27); Glucose Heart Surgery 134 MG/DL (74-106); Hematocrit Heart Surgery 31.7 PERCENT (37-47); Hemoglobin Heart Surgery 10.3 G/DL (12.0-16.0); Ionized Calcium Arterial 1.23 MMOL/L (1.21-1.46); PH Patient Temp Arterial 7.438; Patient Temperature 35 CELCIUS; Potassium Heart/CVR 3.2 MMOL/L (3.5-5.1); Sodium Heart/CVR 141 MMOL/L (135-145)
[2018-09-25] MEDS: PROPOFOL 1,000 MG/100 ML BOTTLE IV SCH (13:03)
[2018-09-25] MEDS ORDERED: NITROGLYCERIN DRIP 50 MG/250 ML BOTTLE IV ONE (13:19)
[2018-09-25] MEDS ORDERED: SODIUM BICARB INJ 100 MEQ in SODIUM CHLORIDE 0.9% 1,000 ML IV SCH (13:30)
[2018-09-25] MEDS ORDERED: PROPOFOL 200 MG/20 ML VIAL IV ONE (13:33)
[2018-09-25] MEDS ORDERED: ETOMIDATE 40 MG/20 ML VIAL IV ONE (13:34)
[2018-09-25] MEDS ORDERED: ROCURONIUM 100 MG/10 ML VIAL IV ONE (13:34)
[2018-09-25] MEDS ORDERED: MIDAZOLAM 2 MG/2 ML VIAL ONE (13:34)
[2018-09-25] MEDS ORDERED: SEVOFLURANE 1 UNIT/15 MINUTE INH ONE (13:34)
[2018-09-25] MEDS ORDERED: fentaNYL 100 MCG/2 ML VIAL ONE (13:34)
[2018-09-25] MEDS ORDERED: SODIUM CHLORIDE 0.9% 2,000 ML IV ONE (13:35)
[2018-09-25 13:39] LABS: ABG Oxygen Saturation 99.7 % (95-100); ABG PCO2 29.5 MM HG (35-48); ABG PH 7.444 (7.35-7.45); ABG TCO2 18.3 MMOL/L (23-27)
[2018-09-25 13:41] LABS: Basophils % 0.2 % (0.0-0.8); Eosinophils # 0.1 10*3/uL (0.0-0.87); Eosinophils % 0.3 % (0.00-10.9); Hematocrit 29.6 VOL% (35.7-47.0); Immature Granulocytes % 1.2 %; Immature Granulocytes Absolute 0.18 #; Lymphocytes # 0.6 10*3/uL (1.4-4.0); Lymphocytes % 4.1 % (21.3-54.2); Mean Corpuscular HGB Conc 33.8 GM/DL (32-36); Mean Corpuscular Hemoglobin 30 PG (27-34); Mean Corpuscular Volume 87.8 FL (87-102); Mean Platelet Volume 10.6 FL (9.6-12.0); Monocytes # 0.5 10*3/uL (0.11-0.8); Monocytes % 3.1 % (1.7-12.7); Neutrophils # 13.5 10*3/uL (1.4-7.4); Neutrophils % 91.1 % (38.7-73.9); Platelet Count 82 T/CUMM (130-400); Red Cell Distribution Width 14.5 % (9.3-17.3); White Blood Count 14.8 T/CUMM (4-12)
[2018-09-25 13:43] LABS: Red Blood Count 3.37 MC/CUMM (3.8-5.5)
[2018-09-25] MEDS ORDERED: HYDROmorphone 2 MG/1 ML VIAL ONE (13:47)
[2018-09-25] MEDS ORDERED: HYDROmorphone 2 MG/1 ML VIAL IV PRN (13:56)
[2018-09-25] MEDS ORDERED: NITROGLYCERIN DRIP 50 MG/250 ML BOTTLE IV PRN (14:00)
[2018-09-25 14:03] LABS: Calcium 9.4 MG/DL (8.5-10.1); Osmolality,Calculated 298.4 MOS/KG (273-304); Potassium 2.9 MMOL/L (3.5-5.1)
[2018-09-25 14:29] LABS: Lymphocytes 4 % (20-55); Segmented Neutrophils 93 % (50-85); Total Cells Counted 100
[2018-09-25 14:30] LABS: Platelet Estimate Decreased
[2018-09-25 14:32] LABS: Hypochromasia 1+; Microcytosis Slight; Polychromasia Few
[2018-09-25 14:32] LABS: ABG Base Excess -3.8 MMOL/L (-2.5-2.5); ABG HCO3 19.8 MMOL/L (20-26); ABG Oxygen Saturation 97.6 % (95-100); ABG PH 7.424 (7.35-7.45); ABG PO2 110.9 MM HG (80-95); ABG TCO2 20.8 MMOL/L (23-27); Glucose Heart Surgery 111 MG/DL (74-106); Hemoglobin Heart Surgery 10.5 G/DL (12.0-16.0); Ionized Calcium Arterial 1.24 MMOL/L (1.21-1.46); PCO2 Patient Temp Arterial 28.4 MMHG; PH Patient Temp Arterial 7.454; PO2 Patient Temp Arterial 99.2 MM HG; Patient Temperature 35 CELCIUS; Potassium Heart/CVR 2.6 MMOL/L (3.5-5.1); Sodium Heart/CVR 141 MMOL/L (135-145)
[2018-09-25] MEDS ORDERED: CALCIUM GLUCONATE 1,000 MG in SODIUM CHLORIDE 0.9% 100 ML IV ONE (15:00)
[2018-09-25] MEDS: POTASSIUM CHLORIDE RIDER 10 MEQ in PREMIX 1 EACH IV PRN ×5 (17:00→20:39)
[2018-09-25] MEDS ORDERED: LACTATED RINGERS 500 ML IV ONE (17:00)
[2018-09-25] MEDS: CIPROFLOXACIN INJ 400 MG in PREMIX 1 EACH IV SCH (18:18)
[2018-09-25 19:24] LABS: Hematocrit 30.1 VOL% (35.7-47.0); Platelet Count 68 T/CUMM (130-400)
[2018-09-25 19:34] LABS: INR 1.2; PT Patient Result 12.7 SECS; Partial Thromboplastin Time 29.4 SECS (0-40)
[2018-09-25] MEDS ORDERED: MAGNESIUM SULF RIDER 4 GM in PREMIX 1 EACH IV PRN (19:49)
[2018-09-25] MEDS ORDERED: MAGNESIUM SULF RIDER 2 GM in PREMIX 1 EACH IV PRN (19:49)
[2018-09-25] MEDS: LACTATED RINGERS 1,000 ML IV SCH (19:50)
[2018-09-25] MEDS ORDERED: LACTATED RINGERS 1,000 ML IV ONE (20:34)
[2018-09-25 21:06] LABS: Apearance,Urine CLEAR (Clear); Bacteria,Urine Occasional /HPF (Few); Bilirubin,Urine Negative (Negative); Blood, Urine Moderate mg/dL (Negative); Glucose,Urine (UA) 50 mg/dL (Negative); Ketones,Urine Negative (Negative); Mucus,Urine Occasional /LPF (Occasional); Nitrite,Urine Negative (Negative); Protein,Urine Negative; RBC,Urine 44 /HPF (0-4); Urine Color Yellow (Yellow); Urine Specific Gravity 1.009 (1.001-1.035); Urine Urobilinogen < 2.0 EU/DL (0.2-1.0); WBC,Urine 8 /HPF (0-6)
[2018-09-25] MEDS: HYDROmorphone 2 MG/1 ML VIAL IV PRN (21:17)
[2018-09-26] MEDS: HYDROmorphone 2 MG/1 ML VIAL IV PRN ×3 (01:31→15:17)
[2018-09-26] MEDS: LACTATED RINGERS 1,000 ML IV SCH ×4 (03:01→20:23)
[2018-09-26 05:16] LABS: Basophils % 0.2 % (0.0-0.8); Eosinophils # 0.2 10*3/uL (0.0-0.87); Hematocrit 31.2 VOL% (35.7-47.0); Hemoglobin 10.6 GM/DL (12.0-16.0); Immature Granulocytes % 0.9 %; Immature Granulocytes Absolute 0.14 #; Lymphocytes # 0.6 10*3/uL (1.4-4.0); Lymphocytes % 3.8 % (21.3-54.2); Mean Corpuscular Hemoglobin 30 PG (27-34); Mean Corpuscular Volume 89.1 FL (87-102); Mean Platelet Volume 11.8 FL (9.6-12.0); Monocytes # 0.6 10*3/uL (0.11-0.8); Monocytes % 3.6 % (1.7-12.7); Neutrophils # 14.8 10*3/uL (1.4-7.4); Neutrophils % 90.5 % (38.7-73.9); Platelet Count 99 T/CUMM (130-400); Red Cell Distribution Width 15.1 % (9.3-17.3); White Blood Count 16.3 T/CUMM (4-12)
[2018-09-26] MEDS: CIPROFLOXACIN INJ 400 MG in PREMIX 1 EACH IV SCH (05:34)
[2018-09-26 05:38] LABS: Albumin 2.1 G/DL (3.4-5.0); Bilirubin,Total 1.5 MG/DL (0.2-1.0); Calcium 9.2 MG/DL (8.5-10.1); Osmolality,Calculated 287.8 MOS/KG (273-304); Total Protein 4.6 G/DL (6.4-8.3)
[2018-09-26 05:55] LABS: INR 1.1; PT Patient Result 11.5 SECS
[2018-09-26 05:58] LABS: Lymphocytes 6 % (20-55); Segmented Neutrophils 93 % (50-85); Total Cells Counted 100
[2018-09-26 05:59] LABS: Anisocytosis Slight; Microcytosis Slight
[2018-09-26 06:03] LABS: Platelet Estimate Decreased
[2018-09-26 06:52] LABS: ABG Base Excess -5.6 MMOL/L (-2.5-2.5); ABG HCO3 19.8 MMOL/L (20-26); ABG Oxygen Saturation 98.6 % (95-100); ABG PCO2 47.7 MM HG (35-48); ABG PH 7.262 (7.35-7.45); ABG TCO2 19.9 MMOL/L (23-27)
[2018-09-26] MEDS: METOPROLOL TARTRATE 25 MG TABLET PO SCH ×2 (08:56→21:29)
[2018-09-26] MEDS: DOCUSATE SODIUM 100 MG CAPSULE PO SCH ×2 (08:56→21:30)
[2018-09-26] MEDS: FERROUS SULFATE 325 MG TABLET PO SCH (08:57)
[2018-09-26] MEDS: PROPOFOL 1,000 MG/100 ML BOTTLE IV SCH ×2 (09:08→13:49)
[2018-09-26] MEDS: PANTOPRAZOLE 40 MG VIAL IV SCH ×2 (09:12→21:33)
[2018-09-26] MEDS: CHLORHEXIDINE 4% SOLN 118 ML BOTTLE TOP SCH (10:54)
[2018-09-27 04:29] LABS: Basophils % 0.2 % (0.0-0.8); Eosinophils # 0.1 10*3/uL (0.0-0.87); Eosinophils % 0.4 % (0.00-10.9); Hematocrit 28.8 VOL% (35.7-47.0); Hemoglobin 9.2 GM/DL (12.0-16.0); Immature Granulocytes % 0.8 %; Immature Granulocytes Absolute 0.17 #; Lymphocytes # 0.4 10*3/uL (1.4-4.0); Lymphocytes % 2.1 % (21.3-54.2); Mean Corpuscular HGB Conc 31.9 GM/DL (32-36); Mean Corpuscular Hemoglobin 29 PG (27-34); Mean Corpuscular Volume 91.7 FL (87-102); Mean Platelet Volume 11.9 FL (9.6-12.0); Monocytes # 0.8 10*3/uL (0.11-0.8); Monocytes % 4.1 % (1.7-12.7); Neutrophils % 92.4 % (38.7-73.9); Platelet Count 63 T/CUMM (130-400); Red Blood Count 3.14 MC/CUMM (3.8-5.5); Red Cell Distribution Width 15.4 % (9.3-17.3); White Blood Count 20.6 T/CUMM (4-12)
[2018-09-27 04:31] LABS: ABG HCO3 21.1 MMOL/L (20-26); ABG Oxygen Saturation 99.8 % (95-100); ABG PCO2 33.7 MM HG (35-48); ABG PH 7.387 (7.35-7.45); ABG TCO2 18.6 MMOL/L (23-27)
[2018-09-27 05:22] LABS: Band Neutrophils 1 % (0-10); Eosinophils 1 % (0-10); Segmented Neutrophils 93 % (50-85); Total Cells Counted 100
[2018-09-27 05:23] LABS: Anisocytosis 1+; Platelet Estimate Decreased
[2018-09-27] MEDS: HYDROmorphone 2 MG/1 ML VIAL IV PRN ×3 (05:41→23:30)
[2018-09-27] MEDS: PROPOFOL 1,000 MG/100 ML BOTTLE IV SCH ×2 (05:51→16:46)
[2018-09-27] MEDS: LACTATED RINGERS 1,000 ML IV SCH ×4 (06:28→16:16)
[2018-09-27] MEDS: DOCUSATE SODIUM 100 MG CAPSULE PO SCH ×2 (08:22→21:08)
[2018-09-27] MEDS: FERROUS SULFATE 325 MG TABLET PO SCH (08:22)
[2018-09-27] MEDS: FUROSEMIDE 20 MG/2 ML VIAL IV SCH ×3 (08:38→21:46)
[2018-09-27] MEDS: CIPROFLOXACIN INJ 400 MG in PREMIX 1 EACH IV SCH ×2 (08:41→20:45)
[2018-09-27] MEDS: metroNIDAZOLE INJ 250 MG in IV BAG 1 EACH IV SCH ×3 (08:41→21:45)
[2018-09-27] MEDS: METOPROLOL TARTRATE 25 MG TABLET PO SCH ×2 (16:13→21:08)
[2018-09-27] MEDS: CHLORHEXIDINE 4% SOLN 118 ML BOTTLE TOP SCH (16:17)
[2018-09-27] MEDS: PANTOPRAZOLE 40 MG VIAL IV SCH ×2 (16:22→21:38)
[2018-09-28] MEDS: LACTATED RINGERS 1,000 ML IV SCH ×5 (00:34→23:24)
[2018-09-28] MEDS: HYDROmorphone 2 MG/1 ML VIAL IV PRN ×2 (03:00→06:21)
[2018-09-28] MEDS: metroNIDAZOLE INJ 250 MG in IV BAG 1 EACH IV SCH ×4 (03:17→21:45)
[2018-09-28 04:31] LABS: ABG Base Excess -3.1 MMOL/L (-2.5-2.5); ABG HCO3 21.9 MMOL/L (20-26); ABG Oxygen Saturation 99.8 % (95-100); ABG PCO2 37.8 MM HG (35-48); ABG PH 7.369 (7.35-7.45); ABG TCO2 19.9 MMOL/L (23-27)
[2018-09-28 04:35] LABS: Basophils # 0.1 10*3/uL (0.0-0.2); Basophils % 0.2 % (0.0-0.8); Eosinophils # 0.1 10*3/uL (0.0-0.87); Eosinophils % 0.2 % (0.00-10.9); Hematocrit 29.5 VOL% (35.7-47.0); Hemoglobin 9.7 GM/DL (12.0-16.0); Immature Granulocytes % 1.5 %; Immature Granulocytes Absolute 0.43 #; Lymphocytes # 0.4 10*3/uL (1.4-4.0); Lymphocytes % 1.5 % (21.3-54.2); Mean Corpuscular HGB Conc 32.9 GM/DL (32-36); Mean Corpuscular Hemoglobin 30 PG (27-34); Mean Platelet Volume 11.4 FL (9.6-12.0); Monocytes # 1.2 10*3/uL (0.11-0.8); Monocytes % 4.3 % (1.7-12.7); Neutrophils # 26.8 10*3/uL (1.4-7.4); Neutrophils % 92.3 % (38.7-73.9); Platelet Count 90 T/CUMM (130-400); Red Blood Count 3.24 MC/CUMM (3.8-5.5); Red Cell Distribution Width 15.4 % (9.3-17.3)
[2018-09-28 04:55] LABS: Calcium 8.8 MG/DL (8.5-10.1); Osmolality,Calculated 277.7 MOS/KG (273-304); Potassium 3.8 MMOL/L (3.5-5.1)
[2018-09-28] MEDS: FUROSEMIDE 20 MG/2 ML VIAL IV SCH ×3 (05:46→23:23)
[2018-09-28 06:30] LABS: Hypochromasia 1+; Lymphocytes 1 % (20-55); Ovalocytes Slight; Platelet Estimate Decreased; Segmented Neutrophils 96 % (50-85); Total Cells Counted 100
[2018-09-28] MEDS: FERROUS SULFATE 325 MG TABLET PO SCH (09:36)
[2018-09-28] MEDS: CIPROFLOXACIN INJ 400 MG in PREMIX 1 EACH IV SCH ×2 (09:36→21:36)
[2018-09-28] MEDS: DOCUSATE SODIUM 100 MG CAPSULE PO SCH ×2 (09:36→10:03)
[2018-09-28] MEDS: METOPROLOL TARTRATE 25 MG TABLET PO SCH ×2 (09:37→21:37)
[2018-09-28] MEDS: PANTOPRAZOLE 40 MG VIAL IV SCH ×2 (09:37→21:37)
[2018-09-28] MEDS: DOCUSATE SODIUM 100 MG/10 ML UDCUP PO SCH ×2 (09:55→21:37)
[2018-09-28] MEDS: CHLORHEXIDINE 4% SOLN 118 ML BOTTLE TOP SCH (12:10)
[2018-09-28] MEDS: PROPOFOL 1,000 MG/100 ML BOTTLE IV SCH (12:11)
[2018-09-28] MEDS ORDERED: GLUCAGON 1 MG VIAL IM PRN (13:25)
[2018-09-28] MEDS ORDERED: DEXTROSE 50% 25 GM/50 ML SYRINGE IV PRN (13:25)
[2018-09-28] MEDS: ALBUMIN 25% 25 GM in PREMIX 1 EACH IV SCH ×2 (13:30→21:36)
[2018-09-28] MEDS: POTASSIUM CHLORIDE RIDER 10 MEQ in PREMIX 1 EACH IV PRN (13:31)
[2018-09-28] MEDS ORDERED: TRACE ELEMENTS (5) 1 ML, MULTIVITAMIN INJ 10 ML in AMINO ACIDS/DEXT/LYTES 5-15% 2,000 ML IV SCH (17:00)
[2018-09-28] MEDS ORDERED: DEXTROSE 10% 1,000 ML IV PRN (17:00)
[2018-09-28] MEDS: INSULIN REGULAR 100 UNIT/ML SUBCUT SCH (18:12)
[2018-09-29] MEDS: INSULIN REGULAR 100 UNIT/ML SUBCUT SCH ×4 (00:17→18:28)
[2018-09-29] MEDS: metroNIDAZOLE INJ 250 MG in IV BAG 1 EACH IV SCH ×4 (03:15→22:27)
[2018-09-29 03:52] LABS: ABG Base Excess -0.6 MMOL/L (-2.5-2.5); ABG Oxygen Saturation 99.8 % (95-100); ABG PCO2 39.2 MM HG (35-48); ABG PH 7.397 (7.35-7.45); ABG TCO2 22.1 MMOL/L (23-27)
[2018-09-29 03:58] LABS: Basophils % 0.2 % (0.0-0.8); Eosinophils # 0.1 10*3/uL (0.0-0.87); Eosinophils % 0.5 % (0.00-10.9); Hematocrit 23.9 VOL% (35.7-47.0); Hemoglobin 7.9 GM/DL (12.0-16.0); Immature Granulocytes % 1.4 %; Immature Granulocytes Absolute 0.28 #; Lymphocytes # 0.6 10*3/uL (1.4-4.0); Lymphocytes % 2.7 % (21.3-54.2); Mean Corpuscular HGB Conc 33.1 GM/DL (32-36); Mean Corpuscular Hemoglobin 30 PG (27-34); Mean Corpuscular Volume 91.6 FL (87-102); Mean Platelet Volume 11.7 FL (9.6-12.0); Monocytes # 1.3 10*3/uL (0.11-0.8); Monocytes % 6.1 % (1.7-12.7); Neutrophils # 18.5 10*3/uL (1.4-7.4); Neutrophils % 89.1 % (38.7-73.9); Platelet Count 85 T/CUMM (130-400); Red Blood Count 2.61 MC/CUMM (3.8-5.5); Red Cell Distribution Width 15.2 % (9.3-17.3); White Blood Count 20.7 T/CUMM (4-12)
[2018-09-29 04:30] LABS: Bilirubin,Total 1.4 MG/DL (0.2-1.0); Calcium 8.7 MG/DL (8.5-10.1); Osmolality,Calculated 280.7 MOS/KG (273-304); Potassium 3.6 MMOL/L (3.5-5.1); Total Protein 4.2 G/DL (6.4-8.3)
[2018-09-29 04:32] LABS: Anisocytosis Slight; Lymphocytes 6 % (20-55); Microcytosis Slight; Segmented Neutrophils 90 % (50-85); Total Cells Counted 100
[2018-09-29 04:33] LABS: Platelet Estimate Decreased
[2018-09-29 04:40] LABS: Prealbumin 6.7 MG/DL (20-40)
[2018-09-29] MEDS ORDERED: SODIUM CHLORIDE 0.9% 1,000 ML IV PRN (04:55)
[2018-09-29] MEDS: ALBUMIN 25% 25 GM in PREMIX 1 EACH IV SCH ×3 (05:49→22:26)
[2018-09-29] MEDS: POTASSIUM CHLORIDE RIDER 20 MEQ in PREMIX 1 EACH IV PRN (05:50)
[2018-09-29] MEDS: FUROSEMIDE 20 MG/2 ML VIAL IV SCH ×3 (06:39→23:29)
[2018-09-29] MEDS: LACTATED RINGERS 1,000 ML IV SCH ×3 (07:46→23:30)
[2018-09-29] MEDS: CIPROFLOXACIN INJ 400 MG in PREMIX 1 EACH IV SCH ×2 (10:07→22:26)
[2018-09-29] MEDS: FERROUS SULFATE 325 MG TABLET PO SCH (10:07)
[2018-09-29] MEDS: METOPROLOL TARTRATE 25 MG TABLET PO SCH ×2 (10:07→22:26)
[2018-09-29] MEDS: DOCUSATE SODIUM 100 MG/10 ML UDCUP PO SCH ×2 (10:07→22:26)
[2018-09-29] MEDS: PANTOPRAZOLE 40 MG VIAL IV SCH ×2 (10:08→22:27)
[2018-09-29] MEDS: PROPOFOL 1,000 MG/100 ML BOTTLE IV SCH ×2 (13:20→22:27)
[2018-09-29] MEDS: CHLORHEXIDINE 4% SOLN 118 ML BOTTLE TOP SCH (15:00)
[2018-09-29] MEDS: FAT EMULSION 20% 250 ML IV SCH (16:21)
[2018-09-29] MEDS: TRACE ELEMENTS (5) 1 ML, MULTIVITAMIN INJ 10 ML in AMINO ACIDS/DEXT/LYTES 5-15% 2,000 ML IV SCH (18:27)
[2018-09-30] MEDS: INSULIN REGULAR 100 UNIT/ML SUBCUT SCH ×4 (01:39→18:19)
[2018-09-30] MEDS: metroNIDAZOLE INJ 250 MG in IV BAG 1 EACH IV SCH ×4 (03:18→20:52)
[2018-09-30 04:24] LABS: ABG HCO3 24.5 MMOL/L (20-26); ABG PCO2 36.9 MM HG (35-48); ABG PH 7.424 (7.35-7.45); ABG TCO2 22.1 MMOL/L (23-27); Allen Test Positive; Pt O2 Delivery Device Ventilator
[2018-09-30] MEDS: ALBUMIN 25% 25 GM in PREMIX 1 EACH IV SCH ×3 (04:48→20:52)
[2018-09-30] MEDS: FUROSEMIDE 20 MG/2 ML VIAL IV SCH ×3 (05:17→21:59)
[2018-09-30 05:34] LABS: Basophils % 0.2 % (0.0-0.8); Eosinophils # 0.1 10*3/uL (0.0-0.87); Eosinophils % 0.9 % (0.00-10.9); Hematocrit 27.5 VOL% (35.7-47.0); Hemoglobin 8.9 GM/DL (12.0-16.0); Immature Granulocytes % 1.6 %; Immature Granulocytes Absolute 0.22 #; Lymphocytes # 0.5 10*3/uL (1.4-4.0); Lymphocytes % 3.4 % (21.3-54.2); Mean Corpuscular HGB Conc 32.4 GM/DL (32-36); Mean Corpuscular Hemoglobin 29 PG (27-34); Mean Corpuscular Volume 88.4 FL (87-102); Mean Platelet Volume 12.1 FL (9.6-12.0); Monocytes % 7.4 % (1.7-12.7); NRBC # 0.02 10*3/uL; Neutrophils # 11.8 10*3/uL (1.4-7.4); Neutrophils % 86.5 % (38.7-73.9); Platelet Count 56 T/CUMM (130-400); Red Blood Count 3.11 MC/CUMM (3.8-5.5); Red Cell Distribution Width 16.5 % (9.3-17.3); White Blood Count 13.7 T/CUMM (4-12)
[2018-09-30 05:35] LABS: INR 1.3
[2018-09-30 05:59] LABS: Albumin 2.6 G/DL (3.4-5.0); Bilirubin,Total 0.8 MG/DL (0.2-1.0); Calcium 8.8 MG/DL (8.5-10.1); Potassium 3.4 MMOL/L (3.5-5.1); Total Protein 4.7 G/DL (6.4-8.3)
[2018-09-30 06:25] LABS: Eosinophils 2 % (0-10); Hypochromasia 1+; Lymphocytes 3 % (20-55); Ovalocytes Slight; Platelet Estimate Decreased; Segmented Neutrophils 86 % (50-85); Total Cells Counted 100
[2018-09-30] MEDS: POTASSIUM CHLORIDE RIDER 20 MEQ in PREMIX 1 EACH IV PRN (07:22)
[2018-09-30] MEDS: METOPROLOL TARTRATE 25 MG TABLET PO SCH ×2 (08:15→20:52)
[2018-09-30] MEDS: CIPROFLOXACIN INJ 400 MG in PREMIX 1 EACH IV SCH ×2 (08:15→20:52)
[2018-09-30] MEDS: DOCUSATE SODIUM 100 MG/10 ML UDCUP PO SCH ×2 (08:15→20:52)
[2018-09-30] MEDS: FERROUS SULFATE 325 MG TABLET PO SCH (08:15)
[2018-09-30] MEDS: PANTOPRAZOLE 40 MG VIAL IV SCH ×2 (09:04→20:52)
[2018-09-30] MEDS: POTASSIUM CHLORIDE RIDER 10 MEQ in PREMIX 1 EACH IV PRN (09:28)
[2018-09-30 10:23] LABS: ABG Base Excess -0.2 MMOL/L (-2.5-2.5); ABG HCO3 24.3 MMOL/L (20-26); ABG Oxygen Saturation 99.2 % (95-100); ABG PCO2 39.6 MM HG (35-48); ABG PH 7.399 (7.35-7.45); ABG TCO2 22.6 MMOL/L (23-27); Allen Test Positive; Pt O2 Delivery Device Ventilator
[2018-09-30] MEDS: CHLORHEXIDINE 4% SOLN 118 ML BOTTLE TOP SCH (11:10)
[2018-09-30] MEDS: LACTATED RINGERS 1,000 ML IV SCH ×2 (11:18→17:10)
[2018-09-30] MEDS ORDERED: LIDOCAINE 2% 20 ML VIAL ONE (11:32)
[2018-09-30] MEDS: PROPOFOL 1,000 MG/100 ML BOTTLE IV SCH (12:28)
[2018-09-30] MEDS: TRACE ELEMENTS (5) 1 ML, MULTIVITAMIN INJ 10 ML in AMINO ACIDS/DEXT/LYTES 5-15% 2,000 ML IV SCH (18:21)
[2018-10-01] MEDS: INSULIN REGULAR 100 UNIT/ML SUBCUT SCH ×5 (00:06→23:54)
[2018-10-01] MEDS: LACTATED RINGERS 1,000 ML IV SCH ×2 (01:41→11:45)
[2018-10-01] MEDS: metroNIDAZOLE INJ 250 MG in IV BAG 1 EACH IV SCH ×4 (03:47→20:56)
[2018-10-01 04:01] LABS: ABG Base Excess 1.3 MMOL/L (-2.5-2.5); ABG HCO3 25.6 MMOL/L (20-26); ABG PCO2 35.4 MM HG (35-48); ABG PH 7.456 (7.35-7.45); ABG TCO2 23.2 MMOL/L (23-27); Pt O2 Delivery Device Ventilator
[2018-10-01 05:23] LABS: Basophils % 0.1 % (0.0-0.8); Eosinophils # 0.1 10*3/uL (0.0-0.87); Hematocrit 24.4 VOL% (35.7-47.0); Immature Granulocytes % 1.1 %; Immature Granulocytes Absolute 0.14 #; Lymphocytes # 0.5 10*3/uL (1.4-4.0); Lymphocytes % 3.9 % (21.3-54.2); Mean Corpuscular HGB Conc 32.8 GM/DL (32-36); Mean Corpuscular Hemoglobin 29 PG (27-34); Mean Corpuscular Volume 87.5 FL (87-102); Mean Platelet Volume 11.9 FL (9.6-12.0); Monocytes % 8.1 % (1.7-12.7); Neutrophils # 10.7 10*3/uL (1.4-7.4); Neutrophils % 85.8 % (38.7-73.9); Platelet Count 61 T/CUMM (130-400); Red Blood Count 2.79 MC/CUMM (3.8-5.5); Red Cell Distribution Width 16.6 % (9.3-17.3); White Blood Count 12.4 T/CUMM (4-12)
[2018-10-01] MEDS: ALBUMIN 25% 25 GM in PREMIX 1 EACH IV SCH ×3 (05:45→20:56)
[2018-10-01] MEDS: FUROSEMIDE 20 MG/2 ML VIAL IV SCH ×3 (05:45→22:45)
[2018-10-01 05:51] LABS: Eosinophils 2 % (0-10); Hypochromasia 1+; Lymphocytes 7 % (20-55); Platelet Estimate Decreased; Segmented Neutrophils 84 % (50-85); Total Cells Counted 100
[2018-10-01 05:53] LABS: Calcium 8.7 MG/DL (8.5-10.1); Potassium 3.8 MMOL/L (3.5-5.1)
[2018-10-01] MEDS ORDERED: FUROSEMIDE 40 MG/4 ML VIAL IV ONE (06:44)
[2018-10-01 07:34] LABS: ABG Base Excess 1.3 MMOL/L (-2.5-2.5); ABG HCO3 25.7 MMOL/L (20-26); ABG Oxygen Saturation 98.7 % (95-100); ABG PCO2 39.9 MM HG (35-48); ABG PH 7.427 (7.35-7.45); ABG TCO2 26.9 MMOL/L (23-27); Allen Test Positive
[2018-10-01] MEDS ORDERED: SODIUM CHLORIDE 0.9% 1,000 ML IV PRN (07:48)
[2018-10-01] MEDS: PANTOPRAZOLE 40 MG VIAL IV SCH ×2 (08:02→20:56)
[2018-10-01] MEDS: CIPROFLOXACIN INJ 400 MG in PREMIX 1 EACH IV SCH ×2 (08:02→20:56)
[2018-10-01] MEDS: FERROUS SULFATE 325 MG TABLET PO SCH (08:03)
[2018-10-01] MEDS: CHLORHEXIDINE 4% SOLN 118 ML BOTTLE TOP SCH (08:03)
[2018-10-01] MEDS: METOPROLOL TARTRATE 25 MG TABLET PO SCH ×2 (08:03→20:56)
[2018-10-01] MEDS: DOCUSATE SODIUM 100 MG/10 ML UDCUP PO SCH ×2 (08:03→20:56)
[2018-10-01] MEDS: FAT EMULSION 20% 250 ML IV SCH (08:27)
[2018-10-01] MEDS: HYDROmorphone 2 MG/1 ML VIAL IV PRN (21:03)
[2018-10-02 04:28] LABS: Calcium 9.5 MG/DL (8.5-10.1); Osmolality,Calculated 282.1 MOS/KG (273-304); Potassium 3.8 MMOL/L (3.5-5.1)
[2018-10-02 04:29] LABS: Basophils % 0.1 % (0.0-0.8); Eosinophils # 0.1 10*3/uL (0.0-0.87); Eosinophils % 0.4 % (0.00-10.9); Hematocrit 36.8 VOL% (35.7-47.0); Hemoglobin 11.7 GM/DL (12.0-16.0); Immature Granulocytes % 1.4 %; Immature Granulocytes Absolute 0.29 #; Lymphocytes # 0.3 10*3/uL (1.4-4.0); Lymphocytes % 1.5 % (21.3-54.2); Mean Corpuscular HGB Conc 31.8 GM/DL (32-36); Mean Corpuscular Hemoglobin 29 PG (27-34); Mean Corpuscular Volume 92.5 FL (87-102); Mean Platelet Volume 12.6 FL (9.6-12.0); Monocytes # 1.3 10*3/uL (0.11-0.8); Monocytes % 6.4 % (1.7-12.7); Neutrophils # 18.7 10*3/uL (1.4-7.4); Neutrophils % 90.2 % (38.7-73.9); Platelet Count 66 T/CUMM (130-400); Red Blood Count 3.98 MC/CUMM (3.8-5.5); Red Cell Distribution Width 16.3 % (9.3-17.3); White Blood Count 20.8 T/CUMM (4-12)
[2018-10-02] MEDS: metroNIDAZOLE INJ 250 MG in IV BAG 1 EACH IV SCH ×3 (04:54→17:15)
[2018-10-02 04:55] LABS: Allen Test Positive
[2018-10-02 04:57] LABS: ABG Base Excess -1.7 MMOL/L (-2.5-2.5); ABG Oxygen Saturation 98.2 % (95-100); ABG PCO2 49.4 MM HG (35-48); ABG PH 7.313 (7.35-7.45); ABG TCO2 22.5 MMOL/L (23-27)
[2018-10-02] MEDS: INSULIN REGULAR 100 UNIT/ML SUBCUT SCH ×3 (05:05→18:55)
[2018-10-02 05:19] LABS: Band Neutrophils 1 % (0-10); Lymphocytes 3 % (20-55); Platelet Estimate Decreased; Segmented Neutrophils 91 % (50-85); Total Cells Counted 100
[2018-10-02] MEDS: ALBUMIN 25% 25 GM in PREMIX 1 EACH IV SCH ×4 (06:07→21:04)
[2018-10-02] MEDS: FUROSEMIDE 40 MG/4 ML VIAL IV SCH ×5 (08:37→22:05)
[2018-10-02] MEDS: DOCUSATE SODIUM 100 MG/10 ML UDCUP PO SCH ×2 (08:37→21:05)
[2018-10-02] MEDS: FERROUS SULFATE 325 MG TABLET PO SCH (08:37)
[2018-10-02] MEDS: METOPROLOL TARTRATE 25 MG TABLET PO SCH ×2 (08:37→21:05)
[2018-10-02] MEDS: PANTOPRAZOLE 40 MG VIAL IV SCH ×2 (08:37→21:05)
[2018-10-02] MEDS: CIPROFLOXACIN INJ 400 MG in PREMIX 1 EACH IV SCH ×2 (08:37→21:04)
[2018-10-02] MEDS: HYDROmorphone 2 MG/1 ML VIAL IV PRN ×2 (10:06→20:08)
[2018-10-02] MEDS: CHLORHEXIDINE 4% SOLN 118 ML BOTTLE TOP SCH (10:09)
[2018-10-02] MEDS ORDERED: POTASSIUM CHLORIDE 20 MEQ TABLET PO ONE (11:09)
[2018-10-03] MEDS: metroNIDAZOLE INJ 250 MG in IV BAG 1 EACH IV SCH ×5 (00:44→23:01)
[2018-10-03] MEDS: INSULIN REGULAR 100 UNIT/ML SUBCUT SCH ×5 (00:54→23:02)
[2018-10-03 03:14] LABS: ABG Base Excess -2.5 MMOL/L (-2.5-2.5); ABG HCO3 22.3 MMOL/L (20-26); ABG Oxygen Saturation 98.3 % (95-100); ABG PCO2 50.3 MM HG (35-48); ABG PH 7.296 (7.35-7.45); ABG TCO2 22.2 MMOL/L (23-27); Allen Test Positive
[2018-10-03 04:07] LABS: Basophils % 0.2 % (0.0-0.8); Eosinophils # 0.1 10*3/uL (0.0-0.87); Eosinophils % 0.4 % (0.00-10.9); Hematocrit 36.1 VOL% (35.7-47.0); Hemoglobin 11.2 GM/DL (12.0-16.0); Immature Granulocytes % 1.3 %; Immature Granulocytes Absolute 0.28 #; Lymphocytes # 0.2 10*3/uL (1.4-4.0); Lymphocytes % 1.1 % (21.3-54.2); Mean Corpuscular Hemoglobin 29 PG (27-34); Mean Corpuscular Volume 94.8 FL (87-102); Mean Platelet Volume 11.9 FL (9.6-12.0); Monocytes # 1.8 10*3/uL (0.11-0.8); Monocytes % 8.4 % (1.7-12.7); Neutrophils # 19.3 10*3/uL (1.4-7.4); Neutrophils % 88.6 % (38.7-73.9); Platelet Count 69 T/CUMM (130-400); Red Blood Count 3.81 MC/CUMM (3.8-5.5); Red Cell Distribution Width 16.6 % (9.3-17.3); White Blood Count 21.8 T/CUMM (4-12)
[2018-10-03 04:24] LABS: Calcium 10.1 MG/DL (8.5-10.1); Osmolality,Calculated 284.2 MOS/KG (273-304); Potassium 4.2 MMOL/L (3.5-5.1)
[2018-10-03 04:37] LABS: Band Neutrophils 3 % (0-10); Eosinophils 2 % (0-10); Lymphocytes 2 % (20-55); Segmented Neutrophils 86 % (50-85)
[2018-10-03 04:40] LABS: Platelet Estimate Decreased
[2018-10-03 04:41] LABS: Total Cells Counted 100
[2018-10-03] MEDS: ALBUMIN 25% 25 GM in PREMIX 1 EACH IV SCH ×3 (05:41→20:26)
[2018-10-03] MEDS: FUROSEMIDE 40 MG/4 ML VIAL IV SCH (06:40)
[2018-10-03] MEDS ORDERED: FUROSEMIDE 40 MG/4 ML VIAL IV SCH (09:00)
[2018-10-03] MEDS: PANTOPRAZOLE 40 MG VIAL IV SCH ×2 (09:07→20:26)
[2018-10-03] MEDS: CIPROFLOXACIN INJ 400 MG in PREMIX 1 EACH IV SCH ×2 (09:09→20:25)
[2018-10-03] MEDS: FERROUS SULFATE 325 MG TABLET PO SCH (09:11)
[2018-10-03] MEDS: METOPROLOL TARTRATE 25 MG TABLET PO SCH (09:11)
[2018-10-03] MEDS: DOCUSATE SODIUM 100 MG/10 ML UDCUP PO SCH ×2 (09:11→20:26)
[2018-10-03] MEDS: CHLORHEXIDINE 4% SOLN 118 ML BOTTLE TOP SCH (09:11)
[2018-10-03] MEDS: ALBUTEROL 1.25 MG/3 ML NEB RESP TX SCH ×2 (12:09→18:59)
[2018-10-03] MEDS ORDERED: SODIUM CHLORIDE 0.9% 250 ML IV ONE ×2 (12:16→17:00)
[2018-10-03] MEDS ORDERED: NOREPINEPHRINE 8 MG in SODIUM CHLORIDE 0.9% 242 ML IV PRN (17:03)
[2018-10-03] MEDS ORDERED: DOPamine 800 MG/250 ML PREMIX IV ONE (18:08)
[2018-10-03] MEDS ORDERED: DOPamine 800 MG/250 ML PREMIX IV PRN (18:09)
[2018-10-03] MEDS ORDERED: METOPROLOL TARTRATE 25 MG TABLET PO SCH (21:00)
[2018-10-04] MEDS: ALBUTEROL 1.25 MG/3 ML NEB RESP TX SCH ×2 (01:27→06:50)
[2018-10-04 03:58] LABS: ABG Base Excess -5.4 MMOL/L (-2.5-2.5); ABG HCO3 19.8 MMOL/L (20-26); ABG Oxygen Saturation 84.2 % (95-100); ABG PCO2 54.1 MM HG (35-48); ABG PH 7.234 (7.35-7.45); ABG PO2 48.7 MM HG (80-95); ABG TCO2 20.9 MMOL/L (23-27); Allen Test Positive; Pt O2 Delivery Device Other
[2018-10-04] MEDS: ALBUMIN 25% 25 GM in PREMIX 1 EACH IV SCH (04:27)
[2018-10-04] MEDS: metroNIDAZOLE INJ 250 MG in IV BAG 1 EACH IV SCH (04:27)
[2018-10-04 04:56] LABS: Basophils # 0.1 10*3/uL (0.0-0.2); Basophils % 0.3 % (0.0-0.8); Hematocrit 37.5 VOL% (35.7-47.0); Hemoglobin 11.9 GM/DL (12.0-16.0); Immature Granulocytes % 1.4 %; Immature Granulocytes Absolute 0.37 #; Lymphocytes # 0.3 10*3/uL (1.4-4.0); Lymphocytes % 0.9 % (21.3-54.2); Mean Corpuscular HGB Conc 31.7 GM/DL (32-36); Mean Corpuscular Hemoglobin 30 PG (27-34); Mean Corpuscular Volume 94.5 FL (87-102); Mean Platelet Volume 12.4 FL (9.6-12.0); Monocytes # 1.8 10*3/uL (0.11-0.8); Monocytes % 6.7 % (1.7-12.7); Neutrophils # 24.8 10*3/uL (1.4-7.4); Neutrophils % 90.7 % (38.7-73.9); Red Blood Count 3.97 MC/CUMM (3.8-5.5); Red Cell Distribution Width 17.1 % (9.3-17.3); White Blood Count 27.3 T/CUMM (4-12)
[2018-10-04 05:03] LABS: Platelet Count 99 T/CUMM (130-400)
[2018-10-04 05:14] LABS: Calcium 10.3 MG/DL (8.5-10.1); Osmolality,Calculated 289.2 MOS/KG (273-304); Potassium 4.7 MMOL/L (3.5-5.1)
[2018-10-04 05:45] LABS: Lymphocytes 2 % (20-55); Segmented Neutrophils 84 % (50-85)
[2018-10-04 05:47] LABS: Burr Cells 2+; Platelet Estimate Decreased
[2018-10-04 05:48] LABS: Total Cells Counted 100
[2018-10-04] MEDS: INSULIN REGULAR 100 UNIT/ML SUBCUT SCH (05:51)
[2018-10-04 11:32] VITALS: BP 86/47
== END 2018-10-04 08:45 | disposition expired | DRG 329 ==
LOC: EDBD → EDUNIT# → N.ED 07:05 → N.EDINP 09:52 → N.2E 10:46 → N.CC 09-15 08:18 → N.2E 09-17 18:38 → N.ICU 09-25 13:34
PROVIDERS: ADMIT Family Medicine; ATTEND Family Medicine